=== PATIENT | female | born 2005 | race Caucasian/White ===

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

== ENCOUNTER 2024-06-01 09:42 | Emergency (ER) | payer OTHER, SELFPAY ==
[2024-06-01 09:44] VITALS: BP 130/76; PULSE 105; RESP 16; TEMP 36.8; O2SAT 99; BMI 25.7
[2024-06-01 10:16] LABS: Mucous, Urine 0 SEEN /hpf (<or=2+); Red Blood Cells-Urine 0 SEEN /hpf (0-5)
[2024-06-01 10:36] LABS: Absolute Lymphocyte Count 2.17 X10^3/uL (0.83-4.51); Absolute Neutrophil Count 9.9 X10^3/uL (2.0-7.7); Basophil# 0.06 X10^3/uL; Basophil% 0.5 % (0-1); Eosinophil# 0.14 X10^3/uL; Eosinophils% 1.1 % (0-5); Hematocrit 39.2 % (37-47); Hemoglobin 12.9 g/dL (12.0-15.0); Lymphocyte # 2.17 X10^3/ul (0.83-4.51); Lymphocyte % 16.6 % (19-41); Mean Corp Hgb Conc 32.9 g/dL (32-36); Mean Corpuscular Hgb 28.4 pg (27.0-32.0); Mean Corpuscular Volume 86.2 fL (81-99); Mean Platelet Vol. 9.1 fl (6.2-12.0); Monocyte# 0.73 X10^3/uL; Monocyte% 5.6 % (0-10); NRBC Flagged by Analyzer 0 % (0-5); Neutrophil # 9.87 X10^3/uL (2.7-7.7); Neutrophil % 75.6 % (47-70); Platelet Count 338 K/mm3 (150-450); RBC Distribution Width CV 12.2 % (11.6-14.6); RBC Distribution Width SD 37.7 fl (35.1-43.9); Red Blood Count 4.55 M/mm3 (4.2-5.4); White Blood Count 13.1 K/mm3 (4.4-11.0)
[2024-06-01 10:37] LABS: Color, Urine Yellow (Yellow); Glucose, Dipstick Normal (Normal); Ketone-Dipstick Negative (Negative); Leukocyte Esterase-Dipstick 25 /ul (Negative); Nitrite-Dipstick Negative (Negative); Occult Blood-Urine Negative /ul (Negative); Protein-Dipstick 15 mg/dl (Negative); Specific Gravity, Urine 1.025 (1.002-1.030); Urine Bilirubin Dipstick Negative (Negative); Urine Clarity Sl. Cloudy (Clear); Urine Urobilinogen Normal (Normal)
[2024-06-01] MEDS: Morphine 4 MG/ML Syringe IV (10:44)
[2024-06-01] MEDS: Metoclopramide 10 MG/2 ML Vial IV (10:44)
[2024-06-01 10:48] LABS: Bacteria 1+ /hpf (None Seen); Squamous Epithelial Cells - UA 0-5 SEEN /hpf (5-10); White Blood Cells 0-5 SEEN /hpf (0-5)
[2024-06-01 10:49] LABS: Internal QC Validated? YES +Cl - CLEAR BKGD
[2024-06-01 10:51] LABS: Pregnancy, Urine Positive Negative
[2024-06-01 10:52] LABS: ALB/GLOB Ratio 0.9 RATIO (0.9-2.4); AST(SGOT) 15 U/L (15-37); Alanine Aminotransfer ALT/SGPT 27 U/L (13-56); Albumin, Serum 3.4 g/dL (3.2-5.0); Alkaline Phosphatase 82 U/L (45-117); Anion Gap 5 (5-15); BUN 9 mg/dL (7-18); BUN/Creat Ratio 16.9 RATIO (10-20); Calcium,Total 9.3 mg/dL (8.5-10.1); Chloride 105 mmol/L (98-107); Creatinine, Serum 0.53 mg/dL (0.55-1.02); EST Glomerular Filtration Rate 156 mL/min (>60); Est Glom Filt Rate - Afr Amer 189 mL/min (>60); Estimated Creatinine Clearance 149.77 ml/min; Globulin 3.8 g/dL (2.2-4.2); Glucose 80 mg/dL (74-106); Lipase 35 U/L (13-75); Potassium 3.9 mmol/L (3.5-5.1); Protein, Total 7.2 g/dL (6.4-8.2); Sodium Level 137 mmol/L (136-145)
--- NOTE | 2024-06-01 11:02 | US_ITS ---
STUDY: RENAL ULTRASOUND - COMPLETE REASON FOR EXAM: Female, 18 years old. aditya pain TECHNIQUE: Ultrasound evaluation of the kidneys was performed with real-time and static valdez-scale imaging. COMPARISON: None. FINDINGS: RIGHT KIDNEY: Normal location of the right kidney, which is normal in size. The right kidney measures 10 cm x 4.5 cm x 6 cm. There is a normal cortex of the right kidney. The renal cortex measures 1.0 cm. There is no right renal mass or cyst. There are no right renal calculi. There is no right hydronephrosis. DISTAL RIGHT URETER: There is non-visualization of the distal right ureter. There is no demonstrated right ureterovesical junction calculus. There is a visualized right ureteral jet. LEFT KIDNEY: Normal location of the left kidney, which is normal in size. The left kidney measures 9.8 cm x 5 cm x 6 cm. There is a normal cortex of the left kidney. The renal cortex measures 1.2 cm. There is no left renal mass or cyst. There are no left renal calculi. There is no left hydronephrosis. DISTAL LEFT URETER: There is non-visualization of the distal left ureter. There is no demonstrated left ureterovesical junction calculus. There is a visualized left ureteral jet. BLADDER: The distended urinary bladder has a volume of 69 ml. There is a normal wall thickness of the distended urinary bladder. There is no demonstrated mass within the urinary bladder. There are no demonstrated bladder calculi. US/Kidney and Bladder IMPRESSION: Normal ultrasound of the kidneys and urinary bladder. Electronically Signed: Wilfredo Huston MD at 13:02 EDT ,
--- NOTE | 2024-06-01 11:02 | US_ITS ---
STUDY: FIRST TRIMESTER OBSTETRICAL ULTRASOUND REASON FOR EXAM: Female, 18 years old back pain LMP: April 04, 2024. TECHNIQUE: Transvaginal TECHNICAL QUALITY: Adequate. PRIOR ULTRASOUND: None. FINDINGS: There is visualization of a single gestational sac in a normal intrauterine position. The mean sac diameter (MSD) measures 3.5 cm, indicating an estimated gestational age (EGA) of 8 weeks, 5 days. The gestational sac shape is within normal limits. There is a visualized yolk sac. The yolk sac measures 4 mm. The placenta is non-visualized. There is visualization of a live embryo. The crown-rump length (CRL) measures 1.7 cm, indicating an estimated gestational age (EGA) of 8 weeks, 0 days. There is demonstrated cardiac activity with a heart rate of 166 bpm. The estimated gestation age (EGA) by LMP is 8 weeks, 2 days. The estimated date of delivery (KYLIE) by LMP is January 09, 2025. The estimated gestation age (EGA) by US is 8 weeks, 3 days. The estimated date of delivery (KYLIE) by US is January 08, 2025. The uterus measures 9.2 cm x 5.9 cm x 5.6 cm. There is no demonstrated uterine fibroid. The cervix is closed. The right ovary measures 3.2 cm x 1.7 cm x 2.6 cm. Complex cyst seen in the right ovary measuring 2.2 cm x 1.2 cm x 1.5 cm. There is no visualized right adnexal mass or complex lesion. The left ovary measures 2.1 cm x 1 cm x 1.1 cm. There is no left ovarian cyst. There is no visualized left adnexal mass or complex lesion. There is no fluid in the cul de sac. US/Transvaginal w/Preg US IMPRESSION: Single live intrauterine gestation with a mean gestational age of 8 weeks and 3 days. 2.2 cm x 1.2 cm x 1.5 cm right ovarian complex cyst. Electronically Signed: Wilfredo Huston MD at 13:11 EDT ,
[2024-06-01 13:42] VITALS: BP 115/65; PULSE 65; RESP 18; O2SAT 99
--- NOTE | 2024-06-01 14:25 | EDS_ITS ---
HPI History of Present Illness Chief Complaint: Back Narrative Narrative: Patient is a 18-year-old female who is currently 8 weeks who presented to the emergency department with a chief complaint of back pain. Patient states that she has had back pain for the past week and notes that is progressively gotten worse. She states that it usually hurts worse when she tries to bend over and twist. Patient denies any injuries or trauma. She denies picking up anything heavy. Patient states that the pain was severe today and she had difficulty with moving her work sent her here for further evaluation management. Patient states that she not taken thing for pain prior to arrival. 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 [facility] Medical History Depression Anxiety Home Medications ?Medication ?Instructions ?Recorded ?Last Taken ?Type cephalexin 500 mg capsule 500 mg PO BID 7 days #14 caps 06/01/24 Unknown Rx Allergy/AdvReac Type Severity Reaction Status Date / Time latex Allergy Hives Verified 06/01/24 09:47 Social History household members: family Smoking Status: Never smoker ROS ROS ED ROS Narrative Constitutional: Denies any fevers, chills, headaches, lightness, dizziness Eyes: Denies changes double vision blurry vision Cardiovascular: Denies chest pain or palpitations Respiratory: Denies coughing wheezing shortness of breath Abdomen: Denies abdominal pain nausea vomit diarrhea : Denies any painful urination, hematuria, polyuria, denies any vaginal bleeding or discharge Neurological: Denies numbness, weakness, tingling Musculoskeletal: Complains of back pain as noted above Skin: Denies rashes or lesions EXAM Physical Exam Narrative Exam Narrative: General: Patient lying in bed did appear to be uncomfortable secondary to her back pain Head: Atraumatic, normocephalic Eyes: PERRL bilaterally, EOMI bilateral no conjunctival injection noted Neck: Soft, supple, trach midline Cardiovascular: Regular rate and rhythm no murmurs gallops rubs noted Respiratory: Clear to auscultation bilaterally no rales rhonchi or wheezes noted Abdomen: Soft, nondistended, nontender to palpation, bowel sounds present x 4 Musculoskeletal: Patient has tenderness to palpation quadratus lumborum region noted on the left side no midline tenderness palpation thoracolumbar spine Extremities: +5/5 strength noted in the bilateral upper and lower extremities, no pedal edema no exam Neurological: Patient following commands knew that she was at [facility] years 2023 Skin: Warm, dry, intact Const Vital Signs: 06/01/24 09:44 06/01/24 13:42 Temperature 98.3 F Temperature Source Oral Pulse Rate 105 H 65 Respiratory Rate 16 18 Blood Pressure 130/76 H 115/65 Blood Pressure Mean 94 81 Pulse Ox 99 99 Oxygen Delivery Method Room Air Room Air MDM MDM MDM Narrative Medical decision making narrative: Patient is a 18-year-old female who presented to the emergency department with a chief complaint of back pain. Patient will have a workup performed here on the differential diagnose includes but not limited to pyelonephritis, UTI, hydronephrosis, ectopic . Once workup is obtained and reviewed she will be reevaluated. Patient be given morphine and Reglan for pain control. Patient's CBC reviewed And showed a white count of 13,000, hemoglobin stable 12.9, platelet count normal at 338. Patient sodium normal 137, potassium normal 3.9, creatinine was noted to be normal at 0.53. Patient's AST and ALT were 15 and 27 respectively, lipase normal at 35. Patient's urinalysis showed 25 leukocyte esterase negative nitrates with 0-5 white cells seen and 1+ bacteria this was sent for culture. We will treat her with Keflex until culture returns. She was advised to follow-up with her primary care physician on this. Patient's test was negative. I did add on an ultrasound of her kidneys and bladder as well as transvaginal ultrasound. Patient's renal ultrasound was reviewed and showed normal ultrasound of the kidneys and urinary bladder. Patient's transvaginal ultrasound reviewed and showed a single live intrauterine gestation with mean gestational age of 8 weeks and 3 days. She has a 2.2 cm x 1.2 cm x 1.5 cm right ovarian complex cyst. On reevaluation the patient and she states that she feels much improved she would like to go home at this point time. Patient was advised to follow-up with her [employer] team which she was referred to that she states that she tried to make an appointment with 1 and they did not accept her insurance. States that she is on a vitamin and was encouraged to take this daily. She was encouraged to take the antibiotics as prescribed that were sent to her pharmacy. She is agreeable this plan all question concerns answered she was discharged home in stable condition. Lab Data Labs: Laboratory Results - last 24 hr 06/01/24 06/01/24 10:10 10:30 WBC 13.1 H RBC 4.55 Hgb 12.9 Hct 39.2 MCV 86.2 MCH 28.4 MCHC 32.9 RDW Std Deviation 37.7 RDW Coeff of Molly 12.2 Plt Count 338 MPV 9.1 Immature Gran % (Auto) 0.600 Neut % (Auto) 75.6 H Lymph % (Auto) 16.6 L [place] % (Auto) 5.6 Eos % (Auto) 1.1 Baso % (Auto) 0.5 Absolute Neuts (auto) 9.9 H Absolute Lymphs (auto) 2.17 Nucleated RBC % 0 Sodium 137 Potassium 3.9 Chloride 105 Carbon Dioxide 27.0 Anion Gap 5 BUN 9 Creatinine 0.53 L Estim Creat Clear Calc 149.77 Est GFR (MDRD) Af Amer 189 Est GFR (MDRD) Non-Af 156 BUN/Creatinine Ratio 16.9 Glucose 80 Calcium 9.3 Total Bilirubin 0.30 AST 15 ALT 27 Alkaline Phosphatase 82 Total Protein 7.2 Albumin 3.4 Globulin 3.8 Albumin/Globulin Ratio 0.9 Lipase 35 Urine Color Yellow Urine Clarity Sl. Cloudy Urine pH 6.0 Ur Specific [place] 1.025 Urine Protein 15 H Urine Glucose (UA) Normal Urine Ketones Negative Urine Occult Blood Negative Urine Nitrite Negative Urine Bilirubin Negative Urine Urobilinogen Normal Ur Leukocyte Esterase 25 H Urine RBC 0 SEEN Urine WBC 0-5 SEEN Ur Squamous Epith Cells 0-5 SEEN Urine Bacteria 1+ Urine Mucus 0 SEEN Urine Test Positive H Radiography Diagnostic Testing: Clinical Impression(s) from Imaging Studies Obstetrics Ultrasound 06/01/24 11:02 IMPRESSION: Single live intrauterine gestation with a mean gestational age of 8 weeks and 3 days. 2.2 cm x 1.2 cm x 1.5 cm right ovarian complex cyst. Electronically Signed: Wilfredo Huston MD at 13:11 EDT , Renal Ultrasound 06/01/24 11:02 IMPRESSION: Normal ultrasound of the kidneys and urinary bladder. Electronically Signed: Wilfredo Huston MD at 13:02 EDT , Discharge Plan Triage Chief Complaint: Back ED Provider: Jake Aparicio Dx/Rx/DC Orders Clinical Impression: Back pain, Asymptomatic bacteriuria during Prescriptions: New cephalexin 500 mg capsule 500 mg PO BID 7 Days Qty: 14 0RF Primary Care Provider: Clarisse Mckeon Referrals: Clarisse Mckeon MD [Primary Care Provider] - Mary Wagner MD [Med Staff - Active Staff] - Activity Restrictions/Additional Instructions: Take antibiotics as prescribed start them today. Follow-up on your urine culture with your primary care physician. Return with worsening symptoms or any other concerns. Use Tylenol for pain control. Print Language: Welsh Disposition Disposition: Home, Self Care
[2024-06-01 14:54] VITALS: BP 121/84; PULSE 84; RESP 16; TEMP 36.8; O2SAT 97
[2024-06-02 10:13] LABS: HCG BETA-SUBUNIT QUANT. 116099 mIU/mL (.)
== END 2024-06-01 14:57 | disposition home or self-care (01) ==
PROVIDERS: Emergency Provider Emergency Medicine; PCP Pediatrics; Visit Provider Emergency Medicine
DX: O99.891 Other specified diseases and conditions complicating pregnancy (principal); O34.81 Maternal care for other abnormalities of pelvic organs, first trimester; Z3A.08 8 weeks gestation of pregnancy; N83.201 Unspecified ovarian cyst, right side; R82.71 Bacteriuria; M54.9 Dorsalgia, unspecified
CPT/HCPCS: 76770; 76817; 80053; 81001; 81025; 83690; 84702; 85025; 87086; 99283

== ENCOUNTER 2024-07-10 03:17 | Emergency (ER) | payer OTHER, SELFPAY ==
[2024-07-10 03:18] VITALS: BP 112/68; PULSE 105; RESP 18; TEMP 37.5; O2SAT 97; BMI 27.0
[2024-07-10] MEDS: Ondansetron 4 MG/2 ML Vial IV (04:05)
[2024-07-10] MEDS: 0.9% Normal Saline (1000mL) 1,000 ML 999 ML IV (04:05)
[2024-07-10 04:10] LABS: Absolute Lymphocyte Count 0.74 X10^3/uL (0.83-4.51); Absolute Neutrophil Count 19.4 X10^3/uL (2.0-7.7); Basophil# 0.03 X10^3/uL; Basophil% 0.1 % (0-1); Eosinophil# 0.01 X10^3/uL; Hematocrit 33.6 % (37-47); Hemoglobin 11.6 g/dL (12.0-15.0); Lymphocyte # 0.74 X10^3/ul (0.83-4.51); Lymphocyte % 3.5 % (19-41); Mean Corp Hgb Conc 34.5 g/dL (32-36); Mean Corpuscular Hgb 29.9 pg (27.0-32.0); Mean Corpuscular Volume 86.6 fL (81-99); Mean Platelet Vol. 9.9 fl (6.2-12.0); Monocyte% 4.2 % (0-10); NRBC Flagged by Analyzer 0 % (0-5); Neutrophil # 19.38 X10^3/uL (2.7-7.7); Neutrophil % 91.5 % (47-70); Platelet Count 218 K/mm3 (150-450); RBC Distribution Width CV 13.2 % (11.6-14.6); RBC Distribution Width SD 41.5 fl (35.1-43.9); Red Blood Count 3.88 M/mm3 (4.2-5.4); White Blood Count 21.2 K/mm3 (4.4-11.0)
[2024-07-10 04:18] LABS: Color, Urine Yellow (Yellow); Glucose, Dipstick Normal (Normal); Leukocyte Esterase-Dipstick 500 /ul (Negative); Nitrite-Dipstick Positive (Negative); Occult Blood-Urine 150 /ul (Negative); Protein-Dipstick 30 mg/dl (Negative); Specific Gravity, Urine 1.025 (1.002-1.030); Urine Bilirubin Dipstick Negative (Negative); Urine Clarity Cloudy (Clear); Urine Urobilinogen Normal (Normal)
[2024-07-10 04:31] LABS: ALB/GLOB Ratio 0.8 RATIO (0.9-2.4); AST(SGOT) 11 U/L (15-37); Alanine Aminotransfer ALT/SGPT 15 U/L (13-56); Albumin, Serum 3.1 g/dL (3.2-5.0); Alkaline Phosphatase 74 U/L (45-117); Anion Gap 7 (5-15); BUN 7 mg/dL (7-18); BUN/Creat Ratio 14.2 RATIO (10-20); Calcium,Total 8.8 mg/dL (8.5-10.1); Chloride 106 mmol/L (98-107); Creatinine, Serum 0.49 mg/dL (0.55-1.02); EST Glomerular Filtration Rate 170 mL/min (>60); Est Glom Filt Rate - Afr Amer 206 mL/min (>60); Estimated Creatinine Clearance 165.88 ml/min; Globulin 3.8 g/dL (2.2-4.2); Glucose 113 mg/dL (74-106); Lipase 19 U/L (13-75); Potassium 3.2 mmol/L (3.5-5.1); Protein, Total 6.9 g/dL (6.4-8.2); Sodium Level 134 mmol/L (136-145)
[2024-07-10 04:32] LABS: Ketone-Dipstick 150 mg/dl (Negative)
[2024-07-10 05:08] LABS: hCG Titer Quant., Serum 19215 mIU/mL (1-3)
[2024-07-10 05:17] VITALS: BP 114/59; PULSE 98; RESP 16; O2SAT 100
[2024-07-10] MEDS: Acetaminophen 500 MG Tablet 1000 MG PO (06:01)
[2024-07-10] MEDS: Ceftriaxone 1 GM/50 ML BAG IV (06:02)
[2024-07-10 06:47] VITALS: BP 124/76; PULSE 124; RESP 18; TEMP 38.7; O2SAT 98
== END 2024-07-10 06:52 | disposition home or self-care (01) ==
PROVIDERS: Emergency Provider Emergency Medicine; Visit Provider Emergency Medicine
DX: O23.02 Infections of kidney in pregnancy, second trimester (principal); Z3A.14 14 weeks gestation of pregnancy; O99.282 Endocrine, nutritional and metabolic diseases complicating pregnancy, second trimester
CPT/HCPCS: 74177; 80053; 81002; 83690; 84702; 85025; 87086; 87088; 87186; 96361; 96365; 96375; 99285; J7030; J7050; Q9967; A4216; J2405